=== PATIENT | male | born 1960 | race Caucasian/White ===

== ENCOUNTER → 2017-02-27 | Outpatient (CLI) | payer OTHER | LOC: BRMIMAGING 11:13 | PROVIDERS: ATTEND Internal Medicine | DX: N50.89 Other specified disorders of the male genital organs (principal); N43.3 Hydrocele, unspecified | CPT/HCPCS: 76870-PO ==

== ENCOUNTER 2018-08-28 05:54 | Day surgery (SDC) | payer OTHER ==
--- NOTE | 2018-08-26 10:29 | GHP ---
[f rep st] PREOP HISTORY AND PHYSICAL DATE OF ADMISSION: 08/28/2018 HISTORY OF PRESENT ILLNESS: Filippo is a 58-year-old male who presents with an inguinal hernia. On exam, he actually has bilateral reducible inguinal hernias. He denies problems with nausea, vomi ting, diarrhea, constipation, shortness of breath, chronic cough, or urinary retention. 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 PAST MEDICAL HISTORY: Includes hypogonadism. PAST SURGICAL HISTORY: Denies. MEDICATIONS: Denies. ALLERGIES: Peanuts. SOCIAL HISTORY: The patient is a nonsmoker, nondrinker, and denies recreational drug use. Again, he works as a shaker out. REVIEW OF SYSTEMS: Ten-point review of systems negative aside from that in the HPI. PHYSICAL EXAMINATION: GENERAL: Reveals a pleasant well-developed, well-nourished 58-year-old male i n no acute distress. HEENT: Normocephalic, atraumatic. Mucous membranes are moist. No scleral ict erus. CHEST: Clear to auscultation bilaterally. CARDIAC: Regular rate and rhythm. ABDOMEN: Soft , with bilateral reducible inguinal hernias. : No masses, no tenderness. PSYCH: Normal mood and affect. NEURO: Grossly intact. SKIN: Warm and dry. IMPRESSION: This is a healthy 58-year-old male with bilateral reducible inguinal hernias. Risks and options were discussed, and he is electing for bilateral [facility]. Risks and options have been discussed including, but not limited to, bleeding, infection, nerve injury, damage to surrounding structures, bladder injury, bowel injury, recurrence, open surgery, and other problems, and he requested to proceed. /[id number]/MODL
[2018-08-28] MEDS ORDERED: LIDOCAINE 1% 2 ML INJ ID PRN (06:10)
[2018-08-28] MEDS ORDERED: ceFAZolin 2 GM/DEXTROSE 100 ML IV ONE (06:10)
[2018-08-28] MEDS ORDERED: LR 1,000 ML IV ONE (06:10)
[2018-08-28] MEDS ORDERED: BUPIVACAINE 0.5% 30 ML SDV ONE (06:52)
--- NOTE | 2018-08-28 06:59 | PDHPUP ---
History & Physical Update H&P update statement: This history and physical update is based on an assessment of the patient which was completed after admission or registration (within 24 hours), but prior to the surgery/procedure. H&P update: H&P reviewed & patient examined, no change in patient's condition since H&P completed
--- NOTE | 2018-08-28 07:02 | PDANEPAE ---
ANE History of Present Illness Bilat ing hernia s/f lap hernia repair ANE Past Medical History - Cardiovascular History Hx Hypertension: No Hx Arrhythmias: No Hx Chest Pain: No Hx Coronary Artery / Peripheral Vascular Disease: No Hx CHF / Valvular Disease: No Hx Palpitations: No - Pulmonary History Hx COPD: No Hx Asthma/Reactive Airway Disease: No Hx Recent Upper Respiratory Infection: No Hx Oxygen in Use at Home: No Hx Sleep Apnea: No Sleep Apnea Screening Result - Last Documented: Negative - Neurologic History Hx Cerebrovascular Accident: No Hx Seizures: No Hx Dementia: No - Endocrine History Hx Diabetes: No Endocrine History Comment: primary hypogonadism - Renal History Hx Renal Disorders: No - Liver History Hx Hepatic Disorders: No - Neurological & Psychiatric Hx Hx Neurological and Psychiatric Disorders: No - Cancer History Hx Cancer: No - Congenital Disorder History Hx Congenital Disorders: No - GI History Hx Gastrointestinal Disorders: No - Other Health History Other Health History: none - Chronic Pain History Chronic Pain: No - Surgical History Prior Surgeries: none in last 5 yrs. shoulder surgery [id number] ANE Review of Systems Review of Systems: - Exercise capacity METS (RN): 5 METS ANE Patient History - Allergies Allergies/Adverse Reactions: No Known Allergies Allergy (Verified 08/22/18 16:42) - Home Medications Home medications: home medication list seen and reviewed Home Medications: Axiron 08/22/18 [Last Taken 08/27/18] Multivitamin 08/22/18 [Last Taken 08/23/18] Preservision Areds 2 Softgel 08/22/18 [Last Taken 08/23/18] Valacyclovir HCl PRN 08/22/18 [Last Taken 08/14/18] - NPO status NPO Status: no food or drink >8 hours NPO Since - Liquids (Date): 08/27/18 NPO Since - Liquids (Time): 22:00 NPO Since - Solids (Date): 08/27/18 NPO Since - Solids (Time): 19:30 - Anes Hx Anes Hx: no prior problems - Smoking Hx Smoking Status: Never smoked - Alcohol Use Alcohol Use: Rarely - Family Anes Hx Family Anes Hx: none Family Hx Anesthesia Complications: none ANE Labs/Vital Signs - Vital Signs Blood Pressure: 123/83 Heart Rate: 66 Respiratory Rate: 16 O2 Sat (%): 96 Height: 170.18 cm Weight: 65.771 kg ANE Physical Exam - Airway Neck exam: FROM Mallampati Score: Class 1 Mouth exam: normal dental/mouth exam - Pulmonary Pulmonary: no respiratory distress - Cardiovascular Cardiovascular: regular rate and rhythym - ASA Status ASA Status: II ANE Anesthesia Plan Anesthesia Plan: general endotracheal anesthesia
[2018-08-28] MEDS ORDERED: PROPOFOL/EMULSION 500 MG/50 ML BOTTLE IV ONE (07:14)
[2018-08-28] MEDS ORDERED: DEXAMETHASONE 4 MG/ML VIAL ONE ×2 (07:14)
[2018-08-28] MEDS ORDERED: ROCURONIUM 50 MG/5 ML VIAL ONE (07:14)
[2018-08-28] MEDS ORDERED: ONDANSETRON 4 MG/2 ML VIAL ONE (07:14)
[2018-08-28] MEDS ORDERED: KETOROLAC 30 MG/1 ML SDV ONE (07:14)
[2018-08-28] MEDS ORDERED: fentaNYL 100 MCG/2 ML INJ ONE (07:14)
[2018-08-28] MEDS ORDERED: LIDOCAINE HCL 160 MG/4 ML LTA KIT TP ONE (07:16)
[2018-08-28] MEDS ORDERED: LIDOCAINE 2% 100 MG/5 ML SYR ONE (07:16)
[2018-08-28] MEDS ORDERED: ePHEDrine SULFATE 25 MG/5 ML SYR ONE (07:27)
[2018-08-28] MEDS ORDERED: METOCLOPRAMIDE 10 MG/2 ML VIAL IVP PRN (08:02)
[2018-08-28] MEDS ORDERED: DEXAMETHASONE 4 MG/ML VIAL IVP PRN (08:02)
[2018-08-28] MEDS ORDERED: NALOXONE HCL 0.4 MG/ML INJ IVP PRN (08:02)
[2018-08-28] MEDS ORDERED: ONDANSETRON 4 MG/2 ML VIAL IVP PRN (08:02)
[2018-08-28] MEDS ORDERED: oxyCODONE IR 5 MG TAB PO PRN (08:02)
[2018-08-28] MEDS ORDERED: ACETAMINOPHEN 500 MG TAB PO PRN (08:02)
[2018-08-28] MEDS ORDERED: LR 500 ML IV PRN (08:02)
[2018-08-28] MEDS ORDERED: PROMETHAZINE HCL 25 MG/ML INJ IVP PRN (08:02)
[2018-08-28] MEDS ORDERED: HYDROCODONE/APAP 5/325 TAB PO PRN (08:02)
[2018-08-28] MEDS ORDERED: PHENYLEPHRINE HCL 100 MCG/ML SYR IVP PRN (08:02)
[2018-08-28] MEDS ORDERED: ALBUTEROL 3 ML DEYVIAL IH PRN (08:02)
[2018-08-28] MEDS ORDERED: MEPERIDINE 25 MG/0.5 ML AMP IVP PRN (08:02)
[2018-08-28] MEDS ORDERED: fentaNYL 100 MCG/2 ML INJ IVP PRN (08:02)
[2018-08-28] MEDS ORDERED: LABETALOL HCL 5 MG/ML 20 ML MDV IVP PRN (08:02)
[2018-08-28] MEDS ORDERED: SUGAMMADEX SODIUM 200 MG/2 ML VIAL IVP ONE (08:10)
--- NOTE | 2018-08-28 08:26 | POSTOPPROG ---
Post Op Note Date of Operation: 08/28/18 Surgeon: Joseph Rice Terrazzo Helper: Jaida Anesthesiologist: Vineet Anesthesia: GET(General Endotracheal) Pre-op Diagnosis: BIH Post-op Diagnosis: same Indication: same Procedure: Lap BIH repair with mesh Findings: Direct RIH, Indirect LIH Inf/Abcess present in the surg proc area at time of surgery?: No Depth: Organ Space EBL: Minimal Bowel Protocol: N/A Clean Closure Performed: N/A
--- NOTE | 2018-08-28 08:52 | POSTANESTH ---
Post Anesthetic Evaluation Cardiovascular Status: Normal, Stable Respiratory Status: Normal, Stable, Tx Decrease in SpO2 Level of Consciousness/Mental Status: Can Participate in Eval, Mildly Sleepy, Arousable Pain Control: Adequate, Prn Tx Ordered Nausea/Vomiting Control: Adequate, Prn Tx Ordered Complications Possibly Related to Anesthesia: None Noted
[2018-08-28 10:17] VITALS: BP 119/77
--- NOTE | 2018-08-28 11:22 | GOP ---
[f rep st] OPERATIVE REPORT DATE OF OPERATION: 08/28/2018 SURGEON: Joseph Rice MD PREOPERATIVE DIAGNOSIS: Bilateral inguinal hernias. POSTOPERATIVE DIAGNOSIS: Bilateral inguinal hernias. PROCEDURE PERFORMED: [facility] FINDINGS: On the right, the patient was found to have a moderate indirect right inguinal hernia sac. He had some adhesions to the previous old appendectomy scar as well. On the left, there was more of a direct weakness defect. DESCRIPTION OF PROCEDURE: The patient was taken to the operating room, where he received satisfactory general endotracheal anesthesia by Dr. Manley, placed in supine position, and prepped and draped in usual sterile fashion. An infraumbilical incision was made. Dissection was carried down, the rectus sheath was incised. A subfascial tunnel was developed in the preperitoneal space, that was dissected free with a bone dissector, which was replaced with CO2 insufflation trocar. Two other trocars were placed in the midline under direct vision. Sung ligament was exposed bilaterally. The cords were mobilized bilaterally. Peritoneum was dissected off the cord structures. On the right, an indirect sac was dissected free and reduced. The sac was closed with hemoclips as it was also adherent to the old appendectomy scar. A Covidien polyester mesh patch was inserted; a split patch was used to pass the limb around the cord structures. It was anchored in place, securing it to Sung ligament, lacunar ligament, the anterior abdominal wall, and the lateral abdominal wall outside the internal ring. On the left side, the peritoneum was dissected off the cord structures. There were no indirect sacs. The direct defect was exposed. A Covidien polyester mesh onlay patch was placed over the inguinal floor and anchored in a similar manner. Hemostasis was assured. The wound was irrigated. Trocars removed under direct vision. Trocar sites were closed with 0 Vicryl for the fascia, and 4-0 Monocryl subcuticular stitch for the skin. All layers infiltrated with 0.5% Marcaine. Estimated blood loss was negligible. He was taken to the recovery room in good condition. There were no complications. PROCEDURE PERFORMED: Laparoscopic bilateral hernia repairs. /[id number]/MODL MTDD
== END 2018-08-28 10:25 | disposition home or self-care (01) ==
LOC: FSGY 05:54
PROVIDERS: ATTEND Surgery
PROC: 0YUA4JZ Supplement Bilateral Inguinal Region with Synthetic Substitute, Percutaneous Endoscopic Approach (ICD-10-PCS; principal; 2018-08-28 07:15)
DX: K40.20 Bilateral inguinal hernia, without obstruction or gangrene, not specified as recurrent (principal); E29.1 Testicular hypofunction
CPT/HCPCS: C1727; C1781; J0690; J1100; J1885; J2001; J2405; J2704; J3010